=== PATIENT | male | born 1990 | race Caucasian/White ===

== ENCOUNTER 2017-10-25 22:32 | Emergency (ER) | payer OTHER ==
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
--- NOTE | 2017-10-26 12:47 | CR ---
Chest: Two views of the chest were obtained. Comparison: No prior chest x-ray. Heart size and mediastinum are normal. Lungs are clear. Slight scoliosis is noted within the spine. Impression: 1. Incidental finding. Nothing acute is seen on two-view chest x-ray. Diagnostic code #1
== END 2017-10-26 00:55 | disposition home or self-care (01) ==
LOC: JD.ED 22:32
DX: R00.2 Palpitations (principal); R94.6 Abnormal results of thyroid function studies; Z88.8 Allergy status to other drugs, medicaments and biological substances; Z87.891 Personal history of nicotine dependence
CPT/HCPCS: 36415; 71046; 71046-26; 80053; 80306; 83735; 84443; 85025; 85379; 85610; 85730; 93005; 93010; 99282-25; 99285-25

== ENCOUNTER 2017-12-25 16:44 | Emergency (ER) | payer OTHER ==
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
== END 2017-12-25 18:15 | disposition home or self-care (01) ==
LOC: JD.ED 16:44
DX: R10.10 Upper abdominal pain, unspecified (principal); Z88.8 Allergy status to other drugs, medicaments and biological substances; Z87.891 Personal history of nicotine dependence; Z98.890 Other specified postprocedural states
CPT/HCPCS: 93005; 99283; 99285-25